=== PATIENT | male | born 1995 | race Caucasian/White ===

== ENCOUNTER 2017-10-13 22:50 | Emergency (ER) | payer OTHER ==
[~2017-10-13] VITALS: Ht 180.3 cm; Wt 70.4 kg
[2017-10-13 22:51] VITALS: BP 132/85
[2017-10-13] MEDS ORDERED: ALBUTEROL/IPRATROPIUM 2.5MG/0.5MG, 3 ML ONE (23:20)
[2017-10-13] MEDS ORDERED: ALBUTEROL/IPRATROPIUM 2.5MG/0.5MG, 3 ML NPPB ONE (23:30)
== END 2017-10-14 00:24 | disposition home or self-care (01) ==
LOC: ED 10-14 00:17
DX: J45.31 Mild persistent asthma with (acute) exacerbation (principal)
CPT/HCPCS: 71020; 94640; 99284; J7512; J7620

== ENCOUNTER 2018-06-17 20:18 | Emergency (ER) | payer OTHER ==
[~2018-06-17] VITALS: Ht 177.8 cm; Wt 75.0 kg
[2018-06-17] MEDS ORDERED: ALBUTEROL/IPRATROPIUM 2.5MG/0.5MG, 3 ML NPPB ONE (20:30)
[2018-06-17] MEDS ORDERED: ALBUTEROL SULFATE 2.5 MG/3 ML ONE (20:33)
[2018-06-17 21:42] VITALS: BP 140/80
== END 2018-06-17 21:44 | disposition home or self-care (01) ==
LOC: ED 21:35
DX: J45.41 Moderate persistent asthma with (acute) exacerbation (principal); J00 Acute nasopharyngitis [common cold]
CPT/HCPCS: 71046; 93005; 94640; 99284; J7512; J7620